=== PATIENT | female | born 1980 | race Hispanic/Latino ===

== ENCOUNTER 2016-08-12 17:52 | Emergency (ER) | payer OTHER ==
[~2016-08-12] VITALS: Ht 167.6 cm; Wt 57.2 kg
[2016-08-12] MEDS ORDERED: CABERGOLINE0.5 M2 PO (19:08)
[2016-08-12] MEDS ORDERED: LO LOESTRIN FE1 EACH PO (19:09)
--- NOTE | 2016-08-12 19:13 | ED CARDIAC/CP/PALPITATIONS ---
History of Present Illness General Chief Complaint: Chest Pain Stated Complaint: PT STATES NEW MED FOR BRAIN TUMOR/CP Source: patient, old records Exam Limitations: no limitations Vital Signs & Intake/Output Vital Signs & Intake/Output Vital Signs Date Time Temp Pulse Resp B/P Pulse O2 O2 Flow FiO2 Ox Delivery Rate 08/12 1931 100 Room Air 08/12 1758 97.1 96 18 120/69 100 Room Air Allergies Coded Allergies: No Known Allergies (08/12/16) Reconcile Medications Cabergoline 0.5 MG TABLET 1 TAB PO 2XW PITUITARY TUMOR (Reported) Norethindrone-E.estradiol-Iron (Lo Loestrin Fe 1-10 Tablet) 1MG-10(24) TABLET 1 TAB PO DAILY CONTROL (Reported) Triage Note: PT COMPLAINS OF MID CHEST PRESSURE SINCE LAST PM. PAIN HAS BEEN CONSTANT. CALLED HER PMD AND WAS TOLD THEY COULD NOT SEE HER INTILL AUGUST. Triage Nurses Notes Reviewed? yes Onset: Abrupt Duration: day(s): (1), constant, waxing and waning Timing: recent history Quality/Severity: mild, moderate, aching Location: substernal Radiation: no radiation Activities at Onset: none Prior Chest Pain/Card Workup: SIMILAR EPISODES Nitro Today/Relief: no nitro taken today Aspirin Today: no aspirin today Associated Symptoms: DENIES : No Patient currently breastfeeds: No HPI: 35-year-old female history of pituitary tumor presents emergency room for evaluation complaining of mid substernal chest pressure since yesterday morning while she was at [employer]. Patient states his symptoms been constant ever laxity in intensity since then. She reports that she's had similar episodes in the past however states this is lasted the longest. There is no pain with inspiration no shortness of breath no abdominal pain nausea or vomiting. She denies dizziness however reports to intermittent palpitations which is normal for her. 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 She is not taken anything else for her pain is declining anything when offered. No recent immobility or travel no leg swelling no fever no chills no cough. (GLEN CHAVEZ,AMADEO) Past History Travel History Traveled to [place] past 21 day No Medical History Any Pertinent Medical History? 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 No (AMADEO HARE) Review of Systems Review of Systems Constitutional: Reports: see HPI. All Other Systems: Reviewed and Negative Comments Review of systems: See HPI, All other systems negative. Constitutional, no chills no fever, no malaise HEENT: No visual changes no sore throat no congestion, Cardiovascular: No chest pain , no palpitation Skin, no rashes, no change in skin Respiratory: No dyspnea no cough no sputum GI: No nausea no vomiting, no diarrhea, : No dysuria Muscle skeletal: No joint pain, no back pain, no neck pain, Neurologic: No numbness no headache Psych: No stress Heme/endocrine: No bruising no bleeding Immunology: No lymphadenopathy (AMADEO HARE) Physical Exam Physical Exam General Appearance: well developed/nourished, no apparent distress, alert, awake Cardiovascular: regular rate/rhythm Comments: Well-developed well-nourished person in no acute distress HEENT: Normal EENT exam; PERRL, EOMI, HEAD is atraumatic. moist mucous membranes. Neck: Supple, normal range of motion Back: Nontender, no CVA tenderness. Full range of motion Cardiovascular: Regular rate and rhythms no murmurs rubs or gallops Respiratory: Chesttender.There were no bony deformities, no asymmetry. No respiratory distress. Patient speaking in full complete sentences. Breath sounds clear to auscultation bilaterally: NO W/R/R Abdomen: Soft, nontender nondistended, no appreciable organomegaly. Normal bowel sounds. No rebound/guarding, Extremity: No edema, full range of motion of extremities, Neuro: Alert oriented x3, motor sensory normal, . There were no obvious focal neurologic abnormalities. Skin: No appreciable rash on exposed skin, skin is warm and dry. Psych: Mood and affect is normal, memory and judgment is normal. Core Measures ACS in differential dx? Yes Severe Sepsis Present: No Septic Shock Present: No All Positive = PERC Ruled Out: Positive: age < 50 years, heart rate < 100 bpm, O2 sat > 94%, no hemoptysis, no hormone use, no prior DVT or PE, no unilateral leg swellin, no surgery/trauma w/ in 4w. (AMADEO HARE) Progress Differential Diagnosis: AMI, aortic dissection, atrial fibrillation, cholecystitis, CHF/pulm edema, costochondritis, hyperventilation, musculoskeletal pain, myocarditis, pericarditis, pneumonia, pneumothorax, PSVT, pulmonary embolism, PUD/GERD, PVCs/PACs, respiratory failure, rib fracture, unstable angina, V-fib/V-Tach Plan of Care: Orders Procedure Date/time Status Add-on Test (ER Only) 08/12 1926 Active Telemetry/Outsole Molder 08/12 1926 Active HUMAN BETA HCG SCREEN 08/12 1909 Complete TROPONIN LEVEL 08/12 1800 Complete COMPREHENSIVE METABOLIC PANEL 08/12 1800 Complete CBC WITHOUT DIFFERENTIAL 08/12 1800 Complete EKG 08/12 1800 Active Laboratory Tests 08/12/161909: Anion Gap 14, Estimated GFR > 60, BUN/Creatinine Ratio 12.9, Glucose 93, Calcium 9.8, Total Bilirubin 1.1, AST 16, ALT 26, Alkaline Phosphatase 57, Troponin I < 0.01, Total Protein 7.4, Albumin 4.4, Globulin 3.0, Albumin/Globulin Ratio 1.5, Total Beta HCG NEGATIVE, CBC w Diff NO MAN DIFF REQ, RBC 4.72, MCV 83.0, MCH 27.2, RDW 14.0, MPV 8.6, Gran % 57.6, Lymphocytes % 32.0, Monocytes % 8.7, Eosinophils % 1.3, Basophils % 0.4, Absolute Granulocytes 4.3, Absolute Lymphocytes 2.4, Absolute Monocytes 0.6, Absolute Eosinophils 0.1, Absolute Basophils 0, PUBS MCHC 32.8 L Labs ordered old records reviewed chest x-ray ordered, Perc negative patient is declining anything for pain when offered Case discussed with Dr. Harding agrees with plan I discussed with the patient at length all of their results. I had an extensive conversation regarding need for close follow up with their primary care physician this week as well as return precautions. I answered all of their questions, they feel comfortable with the plan and follow-up care. (AMADEO HARE) Diagnostic Imaging: Viewed by Me: Radiology Read. Discussed w/RAD: Radiology Read. Radiology Impression: PATIENT: LES EVANS PRESENT AGE: 35 PATIENT ACCOUNT NO: [id number] : 79 LOCATION: [facility] ORDERING PHYSICIAN: AMADEO CHAVEZ SERVICE DATE: 08/12/16 EXAM TYPE: RAD - XRY-CHEST XRAY, PA AND LATERAL EXAMINATION: XR CHEST CLINICAL INFORMATION: Chest pressure. Rule out pneumothorax. COMPARISON: None TECHNIQUE: 2 views of the chest were obtained. FINDINGS: The cardiomediastinal silhouette is normal. No abnormal tracheal deviation. The lungs are mildly hyperinflated. The lungs are clear. No evidence of pneumothorax or pleural effusions. The visualized osseous structures and upper abdomen are unremarkable. IMPRESSION: No evidence of pneumothorax or cardiomegaly. No acute pulmonary process. DICTATED BY: ANDREE ESTRADA MD DATE/TIME DICTATED:08/12/162022 OCEAN IMPORT REPRESENTATIVE:MANPREET DATE/TIME TRANSCRIBED:08/12/162022 CONFIDENTIAL, DO NOT COPY WITHOUT APPROPRIATE AUTHORIZATION. <Electronically signed in Other Vendor System> SIGNED BY: ANDREE ESTRADA MD 08/12/162026 Initial ED EKG: normal intervals, normal p-waves, normal QRS complex, normal sinus rhythm (80) Rhythm Strip: normal sinus rhythm (AMADEO HARE) Departure Departure Disposition: HOME OR SELF CARE Condition: Stable Clinical Impression Primary Impression: Atypical chest pain Referrals: RADHA FLEMING (PCP/Family) Additional Instructions: Follow-up with your primary care physician tomorrow. Return to ER anytime sooner with any concerns or worsening of her symptoms. Tylenol Motrin if needed Departure Forms: Customer Survey General Discharge Information (AMADEO HARE) PA/INSIDE WIREMAN Co-Sign Statement Statement: ED Attending supervision documentation- [] I saw and evaluated the patient. I have also reviewed all the pertinent lab results and diagnostic results. I agree with the findings and the plan of care as documented in the PA's/INSIDE WIREMAN's documentation. [X] I have reviewed the ED Record and agree with the PA's/INSIDE WIREMAN's documentation. [] Additions or exceptions (if any) to the PAs/INSIDE WIREMAN's note and plan are summarized below: [] (ADDIE JACKSON,CANELO Robles) Critical Care Note Critical Care Note Critical Care Time: non-applicable (AMADEO HARE) ED Attending Observation Initial Observation Note: I have seen and personally examined CRISTINA,VERUSHKA on 08/12/16 at 2015. I agree with the current emergency department documentation. The disposition (admission or discharge) is uncertain at this time, she needs a period of observation for the following reason(s): The ED Nurse caring for this patient has been personally informed as to what the patient is being observed for. (GLEN CHAVEZ,AMADEO)
[2016-08-12 19:22] LABS: ABSOLUTE BASOPHIL COUNT 0 /CUMM (0.0-0.2); ABSOLUTE EOSINOPHIL COUNT 0.1 /CUMM (0.0-0.7); ABSOLUTE GRANULOCYTE CT 4.3 /CUMM (1.4-6.5); ABSOLUTE LYMPH COUNT 2.4 /CUMM (1.2-3.4); ABSOLUTE MONOCYTE COUNT 0.6 /CUMM (0.10-0.60); BASOPHIL % 0.4 % (0.0-2.0); EOSINOPHIL % 1.3 % (0-5); GRANULOCYTE % 57.6 % (42.2-75.2); HEMATOCRIT 39.2 % (37-47); MEAN CORPUSCULAR HGB 27.2 PG (27.0-31.0); MEAN CORPUSCULAR HGB CONC 32.8 G/DL (33.0-37.0); MEAN PLATELET VOLUME 8.6 FL (7.4-10.4); PLATELET COUNT 332 /CUMM (130-400); RED BLOOD CELL CT 4.72 /CUMM (4.20-5.40); WHITE BLOOD CELL COUNT 7.4 /CUMM (4.8-10.8)
--- NOTE | 2016-08-12 20:27 | RADIOLOGY REPORT ---
EXAMINATION: XR CHEST CLINICAL INFORMATION: Chest pressure. Rule out pneumothorax. COMPARISON: None TECHNIQUE: 2 views of the chest were obtained. FINDINGS: The cardiomediastinal silhouette is normal. No abnormal tracheal deviation. The lungs are mildly hyperinflated. The lungs are clear. No evidence of pneumothorax or pleural effusions. The visualized osseous structures and upper abdomen are unremarkable. IMPRESSION: No evidence of pneumothorax or cardiomegaly. No acute pulmonary process.
[2016-08-12 20:42] VITALS: BP 106/56
== END 2016-08-12 20:43 ==
LOC: ERH 17:52
PROVIDERS: Emergency Medicine
DX: R07.89 Other chest pain (principal)
CPT/HCPCS: 93005; 93010